=== PATIENT | female | born 1985 | race Caucasian/White ===

== ENCOUNTER 2017-09-30 12:05 | Emergency (ER) | payer SELFPAY ==
[2017-09-30 12:53] VITALS: BP 124/71; PULSE 91; RESP 18; TEMP 98.7; O2SAT 98
--- NOTE | 2017-09-30 14:18 | PD ---
HPI Chief Complaint: Skin Problem Time Seen by Provider: 14:17 Travel History International Travel<30 days: No Contact w/Intl Traveler<30days: No Traveled to known affect area: No History of Present Illness HPI 32-year-old female presents to the ED for evaluation of hair loss and spots on the scalp 2 weeks. Patient states that she noted the hair loss first. She now complains of crusting of the scalp. She denies fever, chills, nausea, vomiting, no use of new grooming products. She's never had a problem like this in the past. She took 6 doses of penicillin over the last couple days with no improvement of symptoms. PFSH Past Medical History ?: Not LMP: CURRENT Social History Tobacco Use: Yes Allergies-Medications (Allergen,Severity, Reaction): Coded Allergies: No Known Allergies (Unverified , 09/30/17) Reported Meds & Prescriptions Reported Meds & Active Scripts Active Selenium Sulfide-Pyrithione Topical 2.25 % Sham 1 Applic TOPICAL 3XWEEK 14 Days Lamisil (Terbinafine) 250 Mg Tab 250 Mg PO DAILY 45 Days Review of Systems Except as stated in HPI: all other systems reviewed are Neg Physical Exam Narrative GENERAL: Well-nourished, well-developed white female in no acute distress. SKIN: Focused skin assessment warm/dry. She had a loss of the scalp with yellow crusting, suspicious for kerion. HEAD: Normocephalic. EYES: No scleral icterus. No injection or drainage. NECK: Supple, trachea midline. No JVD or lymphadenopathy. CARDIOVASCULAR: Regular rate and rhythm without murmurs, gallops, or rubs. RESPIRATORY: Breath sounds equal bilaterally. No accessory muscle use. GASTROINTESTINAL: Abdomen soft, non-tender, nondistended. MUSCULOSKELETAL: No cyanosis, or edema. BACK: Nontender without obvious deformity. No CVA tenderness. Data Data Last Documented VS Vital Signs Date Time Temp Pulse Resp B/P (MAP) Pulse Ox O2 Delivery O2 Flow Rate FiO2 09/30/17 12:53 98.7 91 18 124/71 (88) 98 MDM Medical Decision Making Medical Screen Exam Complete: Yes Emergency Medical Condition: Yes Differential Diagnosis tinea capitis versus kerion versus trichotillomania versus other Narrative Course 32-year-old female presents to the ED for evaluation of hair loss and spots on the scalp 2 weeks. Patient states that she noted the hair loss first. She now complains of crusting of the scalp. She denies fever, chills, nausea, vomiting, no use of new grooming products. She took 6 doses of penicillin over the last couple days with no improvement of symptoms. Vitals reviewed. Exam consistent with tinea capitis and carry him. Patient's prescribed terbinafine 250 mg daily 6 weeks and selenium shampoo 3 times a week for the next 2 weeks. She is instructed to follow-up with the entry level programmer. She is stable and discharged home. Diagnosis Primary Impression: Tinea capitis Additional Impression: Tinea kerion Referrals: [facility] Additional Instructions: Use the selenium shampoo 3 times a week for the next 2 weeks. Take terbinafine daily for the next 6 weeks. Follow-up with a entry level programmer. Return to the ED for worsening symptoms or any urgent or emergent medical condition. Med/Other Pt SpecificInfo: Prescription(s) given Scripts Selenium Sulfide-Pyrithione Topical (Selenium Sulfide-Pyrithione Topical) 2.25 % Sham 1 APPLIC TOPICAL 3xweek for Dandruff for 14 Days, #1 BOTTLE 0 Refills Prov: Jeff Arnold MD 09/30/17 Terbinafine (Lamisil) 250 Mg Tab 250 MG PO DAILY for Manage Fungal Infection for 45 Days, #45 TAB 0 Refills Prov: Jeff Arnold MD 09/30/17 Disposition: 01 DISCHARGE HOME Condition: Stable Lucila Baker Sep 30, 2017 14:18
[2017-09-30] MEDS ORDERED: LAMI250T PO (14:31)
[2017-09-30] MEDS ORDERED: SELE1SHA3 TOPICAL (14:31)
== END 2017-09-30 14:41 | disposition home or self-care (01) ==
LOC: NED 12:05 → NEPK 14:41
DX: B35.0 Tinea barbae and tinea capitis (principal)
CPT/HCPCS: 99283